=== PATIENT | male | born 1990 | race Caucasian/White ===

== ENCOUNTER 2023-05-04 11:58 | Emergency (ER) | payer OTHER, SELFPAY ==
[2023-05-04 12:01] VITALS: BP 128/72
[2023-05-04] MEDS: KEFLEX 500 MG PO (13:11)
--- NOTE | 2023-05-04 13:20 | ED.GENMED ---
History of Present Illness
General
Chief Complaint: Skin Surface Trauma
Source: patient
Exam Limitations: none
Time Seen by Provider: 05/04/23 12:20
Nursing documentation reviewed up to this point in time: agreed with
Travel History
Have you had any contact with someone who has COVID-19?: No
Do you have any symptoms of coronavirus? Fever > 100 degrees, chills, cough, shortness of breath, sore throat, loss of taste or smell, muscle aches, or headache?: No
History of Present Illness
History of Present Illness:
33-year-old male without significant past medical history presenting to the emergency department today with concerns of left sided hand laceration that occurred from a knife prior to arrival when he was doing oil change. He claims that he used a
razor blade to cut him on the area just below the thumb control bleeding with pressure and immediately came to the ER. Denies any numbness weakness or additional concerns. No difficulty moving his thumb. He is unsure when his last tetanus shot
was.
Past History
Social History
Tobacco: Non-smoker
Alcohol: None
Drug: None
Review of Systems
Review of Systems
Allergies reviewed?: Yes
All Other Systems: ROS reviewed and negative except as documented in HPI and ROS
Phy Exam
Physical Exam
Physical Exam:
GENERAL: Alert , in no apparent distress
EYE: pupils equal and reactive
NECK: Supple, no significant adenopathy.
ENT: o/p clr, mmm.
CARDIAC: Regular rate and rhythm .
LUNGS: Clear breath sounds bilaterally, no acute respiratory distress, no wheezes/rales/rhonchi
ABDOMEN: Soft, without focal tenderness, no r/g, no cvat
NEUROLOGICAL: Alert and oriented, no focal neuro deficits
SKIN: Laceration to the left thenar eminence on the radial aspect roughly 5 cm in length with a slight J-shaped. Deep to the subcutaneous tissue. No foreign body seen warm and dry, skin intact.
MUSCULOSKELETAL: No edema, well perfused.
PSYCH: Normal and appropriate interaction.
Course
Orders/Labs/Results
Orders:
Orders
05/04/23 13:08
Cephalexin Monohydrate [Keflex] 500 mg PO NOW STA
Vital Signs
Initial and Last Documented VS:
Initial Vital Signs
Temp Pulse Resp BP Pulse Ox
98.7 F 66 18 128/72 99
05/04/23 12:01 05/04/23 12:01 05/04/23 12:01 05/04/23 12:01 05/04/23 12:01
Last Documented Vital Signs
Temp Pulse Resp BP Pulse Ox
98.7 F 66 18 128/72 99
05/04/23 12:01 05/04/23 12:01 05/04/23 12:01 05/04/23 12:01 05/04/23 12:01
Procedures
Laceration Closure
Left Lateral Proximal Radial First:
Status of Wound: clean
Size of Wound in cm: 5
Description of Wound Edges: sharp
Preparation: cleaned with saline
Anesthesia: 1% Lidocaine with epi
Revision/Debridement: routine- no revision and irrigate-direct pressure
Wound exploration: explored to base- no FB and no tendon involvement
Type of Closure: single layer closure
Skin Closure Material: 4-0 nylon
Number of sutures: 10
MDM/Problems Addressed
MDM/Problems Addressed:
33-year-old male presenting to the emergency department after cutting his left hand with a blade prior to arrival. Very clean in appearance clean thoroughly with irrigation. His surrounding hand was visibly dirty from the oil change concerning
this he was inclined to start antibiotics which I feel is reasonable. He was given this and for the next few days. Additionally he refused the tetanus shot the risks and ramifications of not getting this potentially were discussed with the patient
who demonstrated understanding. This was closed with 10 total sutures advised for removal in 14 days. Return precautions were given otherwise.
*Critical Care Note
Total Time (30-74mins, 75-104mins- exclusive of procedures): Not Applicable
ED Attending Note
-
Portions of this chart may have been created with voice recognition software.� Occasional wrong word or��sound alike� substitutions may have occurred due to the inherent limitations of voice recognition software.
Discharge Plan
Departure
Patient Disposition: Home (Routine Discharge)
Date of Disposition: 05/04/23
Time of Disposition: 13:21
Patient with high blood pressure during this ER visit?: No
Condition: Good
Covid-19: Not Applicable
Discharge Problem:
Hand laceration
Instructions: Laceration Repair With Stitches (DC)
Prescriptions:
New
cephalexin 500 mg capsule
500 mg PO Q8H 3 Days Qty: 9 0RF
No Action
acetaminophen [acetaminophen] 325 mg tablet
650 mg PO Q4HPRN PRN (Reason: mild pain) Qty: 1 0RF
ibuprofen 200 mg tablet
400 - 600 mg PO Q6HPRN PRN (Reason: moderate pain) Qty: 1 0RF
oxycodone 5 mg tablet
5 mg PO Q4HPRN PRN (Reason: breakthrough/severe pain) Qty: 10 0RF
Referrals:
Roger Shahid MD [Family Provider] -
Activity Restrictions/Additional Instructions:
You came to the emergency department today with concerns of laceration to your hand. This was cleaned thoroughly and sutured with 10 total sutures. Please keep the area clean covered take Keflex 3 times daily for the next 3 days. Return to the
emergency department for any worsening, new or concerning symptoms. Otherwise have sutures removed in 14 days.
Interventions
Interventions:
*Risk Screen - Suicide Last Done: 05/04/23 12:01
*General Assessment Last Done: 05/04/23 12:01
*Neglect/Abuse Screening Last Done: 05/04/23 12:01
ED- Fall Risk Assessment Last Done: 05/04/23 13:38
*ED COVID-19 Vaccine History Last Done: 05/04/23 12:35
*Nursing Disposition Last Done: 05/04/23 13:38
ED-Skin Assessment Last Done: 05/04/23 12:36
[2023-05-04 13:38] VITALS: BP 130/77
== END 2023-05-04 13:38 | disposition home or self-care (01) ==
LOC: EMR 11:58
PROVIDERS: EMERGENCY PHYSICIAN Emergency Medicine; FAMILY PHYSICIAN Student in an Organized Health Care Education/Training Program
DX: S61.412A Laceration without foreign body of left hand, initial encounter (principal); W26.0XXA Contact with knife, initial encounter
CPT/HCPCS: 99283; 12002